=== PATIENT | male | born 1950 | race Caucasian/White ===

== ENCOUNTER 2017-07-26 07:46 | Day surgery (SDC) | payer MEDICARE ==
[~2017-07-26 07:46] MED LIST: ACETAMINOPHEN 1,000 MG/100 ML BTL IV ONE
[2017-07-26] MEDS ORDERED: HYDROCODONE/APAP 7.5/325MG TABLET PO ONE (07:47)
[2017-07-26] MEDS ORDERED: BUPIVACAINE 0.25% W/EPI MPF 30ML VIAL IVP ONE (07:47)
[2017-07-26] MEDS ORDERED: LIDOCAINE 2% MDV (20MG/ML) 20ML VIAL IV ONE (07:47)
[2017-07-26] MEDS ORDERED: KETOROLAC 30 MG/ML VIAL IVP ONE (07:47)
[2017-07-26] MEDS ORDERED: SEVOFLURANE 250 ML INH ONE (07:47)
[2017-07-26] MEDS ORDERED: PROPOFOL 10 MG/ML VIAL IV ONE (07:47)
--- NOTE | 2017-07-26 15:10 | Operative Note ---
DATE OF SURGERY: 07/26/2017 Surgeon: Albert Richardson DO Referring physician: Jonh Moss DO PREOPERATIVE DIAGNOSIS: Torn medial and lateral meniscus left knee. POSTOPERATIVE DIAGNOSES: 1. Torn medial and lateral meniscus left knee. 2. 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 3. Chondral calcinosis left knee. OPERATION: 1. Arthroscopic partial medial and lateral meniscectomy left knee. 2. Arthroscopic chondroplasty of the medial femoral condyle and patella. Anesthesia: General. PROCEDURE: This 66-year-old male was taken to the operating room and placed in the supine position on the operating room table. A general anesthetic was administered and the left lower extremity was elevated, it was exsanguinated and the tourniquet inflated to 300 mmHg. Arthroscopic knee patterson applied. The left knee prepped with Hibiclens and draped in the usual sterile fashion. An inferior lateral portal was established with a 4 mm arthroscope. Initial evaluation of the joint demonstrated normal appearance of the suprapatellar pouch. The patella however, demonstrated severe grade 3 changes and the trochlea with grade 2 changes. Some gross instability of the articular cartilage of the patella was present of both the medial and lateral facet and chondroplasty was performed through an inferior medial portal. We did not further disturb the trochlea, because no gross instability of the trochlear cartilage was present. The medial and lateral gutters examined and found to be normal. The medial compartment was entered and a large complex tear of the posterior horn of the medial meniscus with both horizontal cleavage and flap components, with the apex of the tear being at approximately the 11 o'clock position, and utilizing the rotating shaver and basket forceps, we rested back to the meniscal synovial junction, which is where the apex of the tear was and then it was tapered, both medially and laterally to a smooth contoured surface, which was reprobed and confirmed to be normal. Some evidence of chondral calcinosis was present within the meniscus on the medial side and when we probed the lateral meniscus, it also demonstrated chondral calcinosis. After debriding the torn portion of the medial meniscus, it was reprobed and confirmed to be stable. The interchondral notch was examined and found to be normal. The lateral compartment was entered and a degenerative-type tear of the posterior horn of the lateral meniscus was present, representing approximately 50% of the depth of the meniscus, but this did not enter the popliteal hiatus. We resected unstable fragments of the meniscus and smoothed and tapered it and contoured it to a stable rim. This was then reprobed and again confirmed to be stable. The patient's articular cartilage in the medial compartment demonstrated grade 2 changes throughout the entire weightbearing surface and chondroplasty was performed to stabilize the articular cartilage there. The joint was copiously irrigated with lactated Ringer's solution and the instruments were removed. The portal was infiltrated with 0.25% Marcaine with epinephrine. Sterile dressings applied. The tourniquet and knee patterson released and the patient taken to the recovery room in satisfactory condition. GROSS PATHOLOGY: This patient demonstrated tears of both the medial and lateral meniscus as described above, as well as grade 2 chondromalacia of the medial femoral condyle and trochlea and grade 3 changes of the patella as described above. ROBIND
== END 2017-07-26 11:10 | disposition home or self-care (01) ==
LOC: SUR 07:46
PROVIDERS: ATTEND Orthopaedic Surgery
DX: M23.252 Derangement of posterior horn of lateral meniscus due to old tear or injury, left knee (principal); G40.909 Epilepsy, unspecified, not intractable, without status epilepticus; M22.42 Chondromalacia patellae, left knee; M11.262 Other chondrocalcinosis, left knee
CPT/HCPCS: 29880; 01400; 93005; 93010; G0289; J1885